=== PATIENT | male | born 1935 | race Caucasian/White ===

== ENCOUNTER 2020-12-25 11:57 | Inpatient (IN) | payer MEDICARE, SELFPAY ==
[~2020-12-25] VITALS: Ht 170.2 cm; Wt 67.1 kg
[2020-12-25 15:30] VITALS: BP 160/79
[2020-12-25 16:43] LABS: BASO # 0.1 10^3/uL (0.0-0.2); BASO % 0.4 % (0.0-1.0); EOS # 0.1 10^3/uL (0.0-0.5); EOS % 0.5 % (0.0-3.0); HEMATOCRIT 38.8 % (42.0-52.0); HEMOGLOBIN 13.4 g/dl (13.5-17.5); LYMPH % 13.1 % (24.0-44.0); MEAN CORPUSCULAR HEMOGLOBIN 31.6 pg (27.0-33.0); MEAN CORPUSCULAR HGB CONC 34.5 g/dl (32.0-36.5); MEAN CORPUSCULAR VOLUME 91.5 fl (80.0-96.0); MONO # 1.2 10^3/uL (0.0-0.8); MONO % 7.9 % (2.0-8.0); NEUTROPHILS # 11.7 10^3/uL (1.5-8.5); NEUTROPHILS % 77.8 % (36.0-66.0); PLATELET COUNT, AUTOMATED 217 10^3/uL (150-450); RED BLOOD COUNT 4.24 10^6/uL (4.30-6.10)
[2020-12-25 16:56] LABS: INR 1.01; PROTHROMBIN TIME 13.7 SECONDS (12.7-14.5)
[2020-12-25 16:57] LABS: PARTIAL THROMBOPLASTIN TIME 36.5 SECONDS (25.9-37.0)
--- NOTE | 2020-12-25 17:00 | IPNPDOC ---
Text Note Date of Service The patient was seen on 12/25/20. VS,Fishbone, I+O VS, Fishbone, I+O Vital Signs Date Time Temp Pulse Resp B/P (MAP) Pulse Ox O2 Delivery O2 Flow Rate FiO2 12/25/20 15:30 97.8 79 15 160/79 (106) 99 Room Air Adam Grimes DO Dec 25, 2020 17:00 JAQUAN SPENCER MD Dec 25, 2020 19:01
[2020-12-25 17:08] LABS: ALBUMIN 3.7 GM/DL (3.2-5.2); BILIRUBIN,TOTAL 0.9 MG/DL (0.2-1.0); CALCIUM LEVEL 9.6 MG/DL (8.8-10.2); CREATININE FOR GFR 1.33 MG/DL (0.70-1.30); GLOMERULAR FILTRATION RATE 54.7 (>35); MAGNESIUM LEVEL 2.1 MG/DL (1.8-2.4); POTASSIUM SERUM 4.5 MEQ/L (3.5-5.1); TOTAL PROTEIN 7.8 GM/DL (6.4-8.2)
[2020-12-25 17:10] LABS: CK-MB VALUE MASS 1.2 NG/ML (<3.6); CPK CREATINE PHOSPHOKINASE 112 U/L (39-308); MB/CK RELATIVE INDEX 1.07 (< OR =4); TROPONIN I < 0.02 NG/ML (< 0.10)
[2020-12-25] MEDS ORDERED: ONDANSETRON 4MG/2ML VIAL IV PRN (17:10)
[2020-12-25] MEDS ORDERED: MORPHINE 2 MG/ML 1ML VIAL (J2270) IV PRN (17:10)
[2020-12-25] MEDS ORDERED: ASPI81TA26 PO (17:23)
[2020-12-25] MEDS ORDERED: CENT1TAB12 PO (17:23)
[2020-12-25] MEDS ORDERED: HOME MED LIST COMPLETE! XX SCH (17:25)
[2020-12-25] MEDS: NS 1,000 ML IV SCH (18:02)
[2020-12-25] MEDS: PIPERACILLIN/TAZOBACTAM SOD 3.375 GM in D5W MINI-BAG PLUS 50 ML IV SCH (18:02)
--- NOTE | 2020-12-25 18:59 | HPEPDOC ---
General Date of Admission Dec 25, 2020 at 14:33 Date of Service: Dec 25, 2020 Attending Physician: SHERYL CALLEJAS MD Chief Complaint The patient is a 85-year-old male admitted with a reason for visit of Hydronephrosis & Cholecystitis Source: Patient Exam Limitations: No limitations History of Present Illness Subjective: Chief complaint: Patient is a 85-year-old male who presented to the [facility] last night with upper epigastric pain and lower abdominal quadrant pain who was transferred to [facility] for further management. History of present illness: Patient states that yesterday after dinner he developed acute epigastric pain as well as lower abdominal quadrants pain. He described the pain as gnawing, dull, and uncomfortable. He did state he induced vomiting 4-5 times which relieved the lower abdominal quadrant pain but the gnawing uncomfortable pain in the epigastric area continued. He tried Tums whic h provided no relief. He said the burping did provide a couple seconds of relief. Because of the continuing pain he and his decided to go to [facility] for further evaluation and management. There it was discovered that the patient has a 1.5 cm gallstone with gallbladder wall thickening as well as a 2 cm kidney stone in the right kidney with accompanying hydronephrosis. He also received 2 doses of morphine and 1 dose of Zofran at [facility] as well. Home Medications Scheduled Aspirin (Aspirin EC) 81 Mg Tablet.dr, 81 MG PO DAILY, (Reported) Multivit-Min/FA/Lycopen/Lutein (Centrum Silver Men Tablet) 1 Each Tablet, 1 TAB PO DAILY, (Reported) Allergies Coded Allergies: No Known Allergies (Verified Allergy, Unknown, 12/25/20) Past Medical History Medical History None Surgical History Appendectomy at age 7 Social History * Smoker: Denies Alcohol: Denies Drugs: denies A-FIB/CHADSVASC A-FIB History Current/History of A-Fib/PAF?: No Current PO Anticoag Therapy: No Review of Systems Other systems Review of systems: Constitutional: Denies fever, chills, night sweats Cardiac: Denies chest pain Respiratory: Denies shortness of breath, coughing Gastrointestinal: Denies nausea, diarrhea, bright red blood per rectum, flank pain; endorses uncomfortable abdominal pain/epigastric pain Genitourinary: Denies hematuria, dysuria Neurologic: Denies headache, dizziness Physical Examination Other physical findings General: Very pleasant 85-year-old man, resting in bed, no acute distress, wearing his own pajamas Cardiac: Regular rate and rhythm, no murmurs, rubs or gallops Respiratory: Clear to auscultation bilaterally; no wheezes, no rhonchi Gastrointestinal: Bowel sounds present in all quadrants, nontender to palpation in all quadrants including the areas of concern such as the upper epigastric and abdominal lower quadrants; negative Will sign; negative Rovsing sign bilate rally Musculoskeletal: Appropriate range of motion in all 4 extremities Psychological: Alert and oriented x4 Vital Signs Vital Signs Date Time Temp Pulse Resp B/P (MAP) Pulse Ox O2 Delivery O2 Flow Rate FiO2 12/25/20 15:30 97.8 79 15 160/79 (106) 99 Room Air Laboratory Data Labs 24H Laboratory Tests 2 12/25/20 16:22: Immature Granulocyte % (Auto) 0.3, Neutrophils (%) (Auto) 77.8H, Lymphocytes (%) (Auto) 13.1L, Monocytes (%) (Auto) 7.9, Eosinophils (%) (Auto) 0.5, Basophils (%) (Auto) 0.4, Neutrophils # (Auto) 11.7H, Lymphocytes # (Auto) 2.0, Monocytes # (Auto) 1.2H, Eosinophils # (Auto) 0.1, Basophils # (Auto) 0.1, Nucleated Red Blood Cells % (auto) 0.0, Prothrombin Time 13.7, Prothromb Time International Ratio 1.01, Activated Partial Thromboplast Time 36.5, Anion Gap 5L, Glomerular Filtration Rate 54.7, Lactic Acid Level 1.5, Calcium Level 9.6, Magnesium Level 2.1, Total Bilirubin 0.9, Aspartate Amino Transf (AST/SGOT) 17, Alanine Aminotransferase (ALT/SGPT) 25, Alkaline Phosphatase 108, Total Creatine Kinase 112, Creatine Kinase MB 1.2, Creatine Kinase MB Relative Index 1.07, Troponin I < 0.02, Total Protein 7.8, Albumin 3.7, Albumin/Globulin Ratio 0.9, Procalcitonin <0.05 12/25/20 17:07: Urine Color YELLOW, Urine Appearance CLEAR, Urine pH 6.0, Urine Specific [place] 1.009, Urine Protein NEGATIVE, Urine Glucose (UA) NEGATIVE, Urine Ketones NEGATI VE, Urine Blood 1+H, Urine Nitrite NEGATIVE, Urine Bilirubin NEGATIVE, Urine Urobilinogen 0.2, Urine Leukocyte Esterase NEGATIVE, Urine WBC (Auto) 2, Urine RBC (Auto) 3, Urine Hyaline Casts (Auto) 3, Urine Bacteria (Auto) NEGATIVE, Urine Squamous Epithelial Cells 0, Urine Mucus (Auto) SMALL, Urine Sperm (Auto) CBC/BMP Laboratory Tests 12/25/20 16:22 Microbiology Microbiology 12/25/20 Blood Culture, Received Pending 12/25/20 Blood Culture, Received Pending Assessment/Plan Assessment/plan: Patient is an 85-year-old man who presented to [facility] last night with upper epigastric pain and lower abdominal quadrants pain which have now subsided he was transferred to [facility] for further evaluation and management. #Hydronephrosis and kidney stone -Evidence seen on CT scan done at [facility] -An order for urology consult has been placed with Dr. Cuevas to receive his advice and input on further management and treatment of this patient -Flomax started 0.4 mg p.o. daily and IV fluid hydration - Will avoid NSAIDS given slight Cr increase - Will remain NPO until evaluated by Urology #Questionable acute cholecystitis -1.5 cm gallstone in the gallbladder neck and gallbladder wall thickening -Dr. Vanegas was consulted to determine if a HIDA scan will be an appropriate measure -HIDA scan has been ordered to determine presence of acute cholecystitis -Gallbladder ultrasound -Has been placed on Zosyn for antibiotic prophylaxis -Morphine for pain control -Has been made n.p.o. for anticipation of procedures -Discontinue aspirin -Teds and sequentials have been ordered for DVT prophylaxis -0.9% normal saline at 125 mLs/hr #Cr slightly elevated - UA ordered - Will c/w IV fluids #DVT prophylaxis - Will start TEDs/Sequentials Plan / VTE VTE Prophylaxis Ordered?: Yes (Teds and sequentials) GME ATTESTATION GME ATTESTATION My faculty preceptor for this patient encounter was physically present during the encounter and was fully available. All aspects of the patient interview, examination, medical decision making process, and medical care plan development were reviewed and approved by the faculty preceptor. The faculty preceptor is aware and concurs with the plan as stated in the body of this note and will attest to such by his/her cosignature. ATTENDING NOTE I, Sheryl Callejas, have independently examined this patient and performed my own physical exam, as well as reviewed the documentation and edited where necessary. I have discussed in detail with the resident / student the findings and plan of treatment as documented by the resident / student and edited their note. I agree with their findings and treatment plan and have edited their documentation. I will continue to follow the patient during this hospital stay. Adam Grimes DO Dec 25, 2020 18:59 SHERYL CALLEJAS MD Dec 25, 2020 19:05
--- NOTE | 2020-12-25 19:18 | REP ---
INDICATION: 1.5 cm GB neck stone w/ GB wall thickening on CT. COMPARISON: Prior CT imaging not available at this juncture. TECHNIQUE: Right upper quadrant sonography. FINDINGS: Scanning through the right upper quadrant the abdomen demonstrates a mildly distended thick-walled gallbladder containing sludge and a 1.5 cm shadowing echogenic structure consistent with a stone near the gallbladder neck. Gallbladder wall is quite thickened up to 9 mm. Tenderness to scanning was not elicited over the gallbladder 0 ever. The common bile duct is normal measuring 0.4 cm in greatest diameter. No focal liver lesion is seen. The pancreas is obscured by abdominal gas. No free fluid is noted. Incidental note is made of severe right-sided hydronephrosis. Right kidney measures 11.9 x 4.1 x 6.5 cm. IMPRESSION: 1. Cholelithiasis. 2. Distended thick-walled gallbladder containing sludge in addition to a cyst gallstone. No tenderness to scanning or pericholecystic fluid seen. 3. Severe right-sided hydronephrosis. <Electronically signed by Rocco Peña > 12/25/201914
--- NOTE | 2020-12-25 21:45 | SMCUROLCON ---
Urology Consultation General Date of Consultation 12/25/20 Reason For Consultation This patient is seen for Hydronephrosis & Colosystolitis. History of Present Illness Per record and discussion with patient: Chief complaint: Patient is a 85-year-old male who presented to the [facility] last night with upper epigastric pain and lower abdominal quadrant pain who was transferred to [facility] for further management. Per record and discussion with patient: History of present illness: Patient states that yesterday after dinner he developed acute epigastric pain as well as lower abdominal quadrants pain. He described the pain as gnawing, dull, and uncomfortable. He did state he induced vomiting 4-5 times which relieved the lower abdominal quadrant pain but the gnawing uncomfortable pain in the epigastric area continued. He tried Tums which provided no relief. He said the burping did provide a couple seconds of relief. Because of the continuing pain he and his decided to go to [facility] for further evaluation and management. There it was discovered that the patient has a 1.5 cm gallstone with gallbladder wall thickening as well as a 2 cm kidney stone in the right kidney with accompanying hydronephrosis. He also received 2 doses of morphine and 1 dose of Zofran at [facility] as well. Past Medical History Medical History Past Medical History Medical History None Surgical Hstory Surgical History Appendectomy at age 7 Social History Social History Smoker: Denies Alcohol: Denies Drugs: denies Medications Current Medications Current Medications Medications (Trade) Dose Ordered Sig/Jasno Route PRN Reason Start Time Stop Time Status Last Admin Dose Admin Home Med (Home Med List Complete!) ASDIRECTED XX 12/25/20 17:25 12/25/20 17:26 DC Morphine Sulfate (Morphine Sulfate Inj) 2 mg Q6H PRN IV MODERATE PAIN (PS 5-7) 12/25/20 17:10 Ondansetron HCl (ZOFRAN INJection) 4 mg Q8HP PRN IV NAUSEA OR VOMITING 12/25/20 17:10 Piperacillin Sod/ Tazobactam Sod 3.375 gm/Dextrose 50 ml @ 50 mls/hr Q6H IV 12/25/20 18:00 12/25/20 18:02 Sodium Chloride 1,000 ml @ 125 mls/hr Q8H IV 12/25/20 17:10 12/25/20 18:02 Tamsulosin HCl (Flomax) 0.4 mg DAILY PO 12/26/20 09:00 Allergies Allergies: Coded Allergies: No Known Allergies (Verified Allergy, Unknown, 12/25/20) Review of Systems General: Reports: Normal Appetite, Other Symptoms; Denies: ROS Unobtainable, Chills, Night Sweats, Fatigue, Malaise Constitutional: Reports: Other; Denies: Fever, Chills, Sweats, Weakness, Malaise Pulmonary: Denies: Dyspnea, Cough, Pleuritic Chest Pain, Other Symptoms Cardiovascular: Denies Chest Pain, Denies Palpitations, Denies Orthopnea, Denies Paroxysmal Noc. Dyspnea, Denies Edema, Denies Lt Headedness, Denies Other Symptoms Gastrointestinal: Reports: Nausea, Vomiting, Abdominal Pain, Diarrhea, Constipation, Melena, Hematochezia, Other Symptoms Genitourinary: Denies: Dysuria, Frequency, Incontinence, Hematuria, Retention, Other Symptoms Musculoskeletal: Denies: Neck Pain, Back Pain, Shoulder Pain, Arm Pain, Hand Pain, Leg Pain, Foot Pain, Joint Pain, Muscle Pain, Spasms, Other Symptoms Neurological: Denies: Weakness, Numbness, Incoordination, Change in Speech, Confusion, Seizures, Other Symptoms Physical Examination General Exam: Alert, Cooperative EYE EXAM: Conjunctiva & lids normal Neck Exam: Supple Chest Exam: Clear to auscultation Male Exam: Normal Genital Exam Male Exam Prostate 40 grams smooth Extremity Exam: No: Clubbing, Cyanosis, Edema, Normal Pulses, Tenderness, Swelling, Other Neuro Exam: Normal Tone, Reflexes 2+, Other; No: Normal Gait, Normal Speech, Strength at 5/5 X4 ext, Sensation Intact, Cranial Nerves 3-12 NL Vital Signs/I&O Vital Signs Date Time Temp Pulse Resp B/P (MAP) Pulse Ox O2 Delivery O2 Flow Rate FiO2 12/25/20 15:30 97.8 79 15 160/79 (106) 99 Room Air Laboratory Data 24H Labs Laboratory Tests 2 12/25/20 16:22: Immature Granulocyte % (Auto) 0.3, Neutrophils (%) (Auto) 77.8H, Lymphocytes (%) (Auto) 13.1L, Monocytes (%) (Auto) 7.9, Eosinophils (%) (Auto) 0.5, Basophils (%) (Auto) 0.4, Neutrophils # (Auto) 11.7H, Lymphocytes # (Auto) 2.0, Monocytes # (Auto) 1.2H, Eosinophils # (Auto) 0.1, Basophils # (Auto) 0.1, Nucleated Red Blood Cells % (auto) 0.0, Prothrombin Time 13.7, Prothromb Time International Ratio 1.01, Activated Partial Thromboplast Time 36.5, Anion Gap 5L, Glomerular Filtration Rate 54.7, Lactic Acid Level 1.5, Calcium Level 9.6, Magnesium Level 2.1, Total Bilirubin 0.9, Aspartate Amino Transf (AST/SGOT) 17, Alanine Aminotransferase (ALT/SGPT) 25, Alkaline Phosphatase 108, Total Creatine Kinase 112, Creatine Kinase MB 1.2, Creatine Kinase MB Relative Index 1.07, Troponin I < 0.02, Total Protein 7.8, Albumin 3.7, Albumin/Globulin Ratio 0.9, Procalcitonin <0.05 12/25/20 17:07: Urine Color YELLOW, Urine Appearance CLEAR, Urine pH 6.0, Urine Specific [place] 1.009, Urine Protein NEGATIVE, Urine Glucose (UA) NEGATIVE, Urine Ketones NEGATIVE, Urine Blood 1+H, Urine Nitrite NEGATIVE, Urine Bilirubin NEGATIVE, Urine Urobilinogen 0.2, Urine Leukocyte Esterase NEGATIVE, Urine WBC (Auto) 2, Urine RBC (Auto) 3, Urine Hyaline Casts (Auto) 3, Urine Bacteria (Auto) NEGATIVE, Urine Squamous Epithelial Cells 0, Urine Mucus (Auto) SMALL, Urine Sperm (Auto) CBC/BMP Laboratory Tests 12/25/20 16:22 Microbiology Microbiology 12/25/20 Blood Culture, Received Pending 12/25/20 Blood Culture, Received Pending Assessment Patient [id number]-year-old male under no acute distress. Has a noncontrast CT that shows a greater than 2 cm stone at the UPJ proximal ureter. The kidney is obstructed with significant hydronephrosis and some mild perinephric stranding. This case is complicated by a stone that may be obstructing his gallbladder as well causing acute cholecystitis. Plan I discussed with the patient and his son the treatment option of placing a right ureteral stent tonight to relieve the obstruction. I discussed with the patient that his case is complicated by the dual processes going on between the kidney and the gallbladder with stones that could be obstructing and causing his symptoms. Per the CT scan it is clear that the right collecting system is obstructed. I informed patient of the risks that if his kidney becomes or is infected, he can become extremely ill from sepsis. His white count is 15 and unsure of this slight bump in his white count is from the gallbladder or the kidney. Patient was given the opportunity to have a RT ureteral stent placed tonight. Risk and benefits were discussed for 15 minutes (patient and son). Several questions were answered. After consideration and talking to his son (by phone) and considering it for over 25 minutes, he opted to wait. Patient and son are aware that I cannot predict when he could become ill or when the operating room will be available for us to perform this procedure at a later date. Will reevaluate tomorrow. TATI KNOWLES MD Dec 25, 2020 21:19
[2020-12-25 22:26] VITALS: BP 158/81
[2020-12-26] VITALS (7 sets, daily range): BP systolic 150–169; BP diastolic 67–86
[2020-12-26] MEDS: PIPERACILLIN/TAZOBACTAM SOD 3.375 GM in D5W MINI-BAG PLUS 50 ML IV SCH ×4 (00:02→18:15)
[2020-12-26] MEDS: NS 1,000 ML IV SCH ×2 (01:10→12:01)
--- NOTE | 2020-12-26 07:25 | IPNPDOC ---
Subjective Review oF Systems Chief Complaint The patient is a 85-year-old male admitted with a reason for visit of Hydronephrosis & Colosystolitis. Events since Last Encounter Patient stable and afebrile throughout the night. Gastrointestinal: Reports: Diarrhea, Constipation, Melena, Hematochezia, Other Symptoms; Denies: Nausea, Vomiting, Abdominal Pain Genitourinary: Denies: Dysuria, Frequency, Incontinence, Hematuria, Retention, Other Symptoms Objective Physical Examination ABDOMEN EXAM: Normal bowel sounds, BS Hyperactive, BS Hypoactive, Soft, Hepatospenomegaly, Mass, Hernia, Other; No: Tenderness Vital Signs/I&O Vital Signs Date Time Temp Pulse Resp B/P (MAP) Pulse Ox O2 Delivery O2 Flow Rate FiO2 12/26/20 06:44 97.7 68 18 154/67 (96) 97 Room Air I&O- Last 24 Hours up to 6 AM 12/26/20 06:00 Intake Total 0 ml Output Total 100 ml Balance -100 ml Laboratory Data Labs 24H Laboratory Tests 2 12/25/20 16:22: Immature Granulocyte % (Auto) 0.3, Neutrophils (%) (Auto) 77.8H, Lymphocytes (%) (Auto) 13.1L, Monocytes (%) (Auto) 7.9, Eosinophils (%) (Auto) 0.5, Basophils (%) (Auto) 0.4, Neutrophils # (Auto) 11.7H, Lymphocytes # (Auto) 2.0, Monocytes # (Auto) 1.2H, Eosinophils # (Auto) 0.1, Basophils # (Auto) 0.1, Nucleated Red Blood Cells % (auto) 0.0, Prothrombin Time 13.7, Prothromb Time International Ratio 1.01, Activated Partial Thromboplast Time 36.5, Anion Gap 5L, Glomerular Filtration Rate 54.7, Lactic Acid Level 1.5, Calcium Level 9.6, Magnesium Level 2.1, Total Bilirubin 0.9, Aspartate Amino Transf (AST/SGOT) 17, Alanine Aminotransferase (ALT/SGPT) 25, Alkaline Phosphatase 108, Total Creatine Kinase 112, Creatine Kinase MB 1.2, Creatine Kinase MB Relative Index 1.07, Troponin I < 0.02, Total Protein 7.8, Albumin 3.7, Albumin/Globulin Ratio 0.9, Procalcitonin <0.05 12/25/20 17:07: Urine Color YELLOW, Urine Appearance CLEAR, Urine pH 6.0, Urine Specific [place] 1.009, Urine Protein NEGATIVE, Urine Glucose (UA) NEGATIVE, Urine Ketones NE GATIVE, Urine Blood 1+H, Urine Nitrite NEGATIVE, Urine Bilirubin NEGATIVE, Urine Urobilinogen 0.2, Urine Leukocyte Esterase NEGATIVE, Urine WBC (Auto) 2, Urine RBC (Auto) 3, Urine Hyaline Casts (Auto) 3, Urine Bacteria (Auto) NEGATIVE, Urine Squamous Epithelial Cells 0, Urine Mucus (Auto) SMALL, Urine Sperm (Auto) CBC/BMP Laboratory Tests 12/25/20 16:22 Microbiology Microbiology 12/25/20 Blood Culture, Received Pending 12/25/20 Blood Culture, Received Pending Assessment/Plan Date Seen The patient was seen on 12/26/20. Patient Summary Stable Labs pending. Plan/VTE VTE Prophylaxis Ordered?: Yes (Teds and sequentials) Plan Continue present care possible stent ureteral stent placement or PNC TATI KNOWLES MD Dec 26, 2020 07:25
[2020-12-26] MEDS ORDERED: TAMSULOSIN 0.4 MG CAP PO SCH (09:00)
--- NOTE | 2020-12-26 09:18 | IPNPDOC ---
Date Seen The patient was seen on 12/26/20. Progress Note met with pt this morning sitting at bedside looks comfortable denies any pain wbc 15 repeat blood work to be done yet I spoke with pt at length about the need for a right stent explained that he is obstructed and will likely worsen clinically if he decides against a stent pt hesitant and asked many questions I left with the following plan in place npo await repeat blood work decide on stent after seeing blood work Dr. Cuevas has spoken with pt at length as well thank you [phone] VS, I&O, 24H, [place] Vital Signs/I&O Vital Signs Date Time Temp Pulse Resp B/P (MAP) Pulse Ox O2 Delivery O2 Flow Rate FiO2 12/26/20 06:44 97.7 68 18 154/67 (96) 97 Room Air I&O- Last 24 Hours up to 6 AM 12/26/20 06:00 Intake Total 0 ml Output Total 100 ml Balance -100 ml Laboratory Data 24H LABS Laboratory Tests 2 12/25/20 16:22: Immature Granulocyte % (Auto) 0.3, Neutrophils (%) (Auto) 77.8H, Lymphocytes (%) (Auto) 13.1L, Monocytes (%) (Auto) 7.9, Eosinophils (%) (Auto) 0.5, Basophils (%) (Auto) 0.4, Neutrophils # (Auto) 11.7H, Lymphocytes # (Auto) 2.0, Monocytes # (Auto) 1.2H, Eosinophils # (Auto) 0.1, Basophils # (Auto) 0.1, Nucleated Red Blood Cells % (auto) 0.0, Prothrombin Time 13.7, Prothromb Time International Ratio 1.01, Activated Partial Thromboplast Time 36.5, Anion Gap 5L, Glomerular Filtration Rate 54.7, Lactic Acid Level 1.5, Calcium Level 9.6, Magnesium Level 2.1, Total Bilirubin 0.9, Aspartate Amino Transf (AST/SGOT) 17, Alanine Aminotransferase (ALT/SGPT) 25, Alkaline Phosphatase 108, Total Creatine Kinase 112, Creatine Kinase MB 1.2, Creatine Kinase MB Relative Index 1.07, Troponin I < 0.02, Total Protein 7.8, Albumin 3.7, Albumin/Globulin Ratio 0.9, Procalcitonin <0.05 12/25/20 17:07: Urine Color YELLOW, Urine Appearance CLEAR, Urine pH 6.0, Urine Specific [place] 1.009, Urine Protein NEGATIVE, Urine Glucose (UA) NEGATIVE, Urine Ketones NEGATIVE, Urine Blood 1+H, Urine Nitrite NEGATIVE, Urine Bilirubin NEGATIVE, Urine Urobilinogen 0.2, Urine Leukocyte Esterase NEGATIVE, Urine WBC (Auto) 2, Urine RBC (Auto) 3, Urine Hyaline Casts (Auto) 3, Urine Bacteria (Auto) NEGATIVE, Urine Squamous Epithelial Cells 0, Urine Mucus (Auto) SMALL, Urine Sperm (Auto) CBC/BMP Laboratory Tests 12/25/20 16:22 Microbiology Microbiology 12/25/20 Blood Culture, Received Pending 12/25/20 Blood Culture, Received Pending VALENTINA BRUCE MD Dec 26, 2020 09:18
--- NOTE | 2020-12-26 10:37 | IPNPDOC ---
Text Note Date of Service The patient was seen on 12/26/20. NOTE Subjective: Patient is a 85-year-old male who presented to the [facility] last night with upper epigastric pain and lower abdominal quadrant pain who was transferred to [facility] for further management. Patient states that yesterday after dinner he developed acute epigastric pain as well as lower abdominal quadrants pain. He described the pain as gnawing, dull, and uncomfortable. He did state he induced vomiting 4-5 times which relieved the lower abdominal quadrant pain but the gnawing uncomfortable pain in the epigastric area continued. He tried Tums whic h provided no relief. He said the burping did provide a couple seconds of relief. Because of the continuing pain he and his decided to go to [facility] for further evaluation and management. There it was discovered that the patient has a 1.5 cm gallstone with gallbladder wall thickening as well as a 2 cm kidney stone in the right kidney with accompanying hydronephrosis. He also received 2 doses of morphine and 1 dose of Zofran at [facility] as well. Overnight patient did well. Is not complaining of any pain at this time. He is seen Dr. Cuevas and Dr. Whipple for urology consults pertaining to his hydronephrosis and kidney stone. After talking Dr. Cuevas last night patient wanted to hold off on having a stent placed due to feeling worse to make an incision that night. This morning Dr. Whipple explained that "[the right kidney] is obstructed he is obstructed and will likely worsen clinically After talking with Dr. Whipple he this morning and patient has agreed to have a stent put in. Patient did however deny customer service professional blood draw due to confusion as to why they were drawing blood. It was explained to him that it was needed for diagnostic purposes to see if there are any issues related to his kidney and gallbladder and he consented to have it drawn. Review of Systems Other systems Review of systems: Constitutional: Denies fever, chills, night sweats Cardiac: Denies chest pain Respiratory: Denies shortness of breath, coughing Gastrointestinal: Denies nausea, diarrhea, bright red blood per rectum, flank pain, or the uncomfortable abdominal pain that brought him to the hospital to begin with Genitourinary: Denies hematuria, dysuria Neurologic: Denies headache, dizziness Physical Examination Other physical findings General: Very pleasant 85-year-old man, resting in bed, no acute distress, wearing his own pajamas HEENT: Eyes PERRLA and EOMI Cardiac: Regular rate and rhythm, no murmurs, rubs or gallops Respiratory: Clear to auscultation bilaterally; no wheezes, no rhonchi Gastrointestinal: Bowel sounds present in all quadrants, nontender to palpation in all quadrants including the areas of concern such as the upper epigastric and abdominal lower quadrants Musculoskeletal: Appropriate range of motion in all 4 extremities Psychological: Alert and oriented x4 Imaging: Mildly distended, thick-walled gallbladder containing sludge and a 1.5 cm shadowing echogenic structure consistent with a stone near the gallbladder neck. Gallbladder wall is quite thickened up to 9 mm. Tenderness to scanning was not elicited over the gallbladder. The common bile duct is normal measuring 0.4 cm in greatest diameter. No focal liver lesion is seen. The pancreas is obscured by abdominal gas. No free fluid is noted. Incidental note is made of severe right-sided hydronephrosis. Right kidney measures 11.9 x 4.1 x 6.5 cm. Assessment/plan: Patient is an 85-year-old man who presented to [facility] last night with upper epigastric pain and lower abdominal quadrants pain which have now subsided he was transferred to [facility] for further evaluation and management. #Hydronephrosis and kidney stone -Evidence seen on CT scan done at [facility] -Flomax started 0.4 mg p.o. daily and IV fluid hydration -Will avoid NSAIDS given slight Cr increase -Will remain NPO until evaluated by Urology -Dr. Cuevas saw the patient last night today. Per patient Dr. Cuevas made it seem like a very urgent matter and patient wanted to discuss it more with his family and think about it. Patient consulted with Dr. Whipple this morning and has agreed to have the stent placed today #Questionable acute cholecystitis -1.5 cm gallstone in the gallbladder neck and gallbladder wall thickening -Dr. Vanegas was consulted to determine if a HIDA scan will be an appropriate measure -HIDA scan has been ordered to determine presence of acute cholecystitis -Gallbladder ultrasound completed -Has been placed on Zosyn for antibiotic prophylaxis -Morphine for pain control -Has been made n.p.o. for anticipation of procedures -Discontinue aspirin -Teds and sequentials have been ordered for DVT prophylaxis -0.9% normal saline at 125 mLs/hr #Cr slightly elevated - likely 2/2 JOSIE - likely 2/2 post-obstructive etiology - Cr remains elevated - UA ordered - Will c/w IV fluids #DVT prophylaxis - Will c/w TEDs/Sequentials VS,Fishbone, I+O VS, Fishbone, I+O Laboratory Tests 12/25/20 16:22 Vital Signs Date Time Temp Pulse Resp B/P (MAP) Pulse Ox O2 Delivery O2 Flow Rate FiO2 12/26/20 06:44 97.7 68 18 154/67 (96) 97 Room Air I&O- Last 24 Hours up to 6 AM 12/26/20 06:00 Intake Total 0 ml Output Total 100 ml Balance -100 ml GME ATTESTATION GME ATTESTATION My faculty preceptor for this patient encounter was physically present during the encounter and was fully available. All aspects of the patient interview, examination, medical decision making process, and medical care plan development were reviewed and approved by the faculty preceptor. The faculty preceptor is aware and concurs with the plan as stated in the body of this note and will attest to such by his/her cosignature. ATTENDING NOTE I, Sheryl Callejas, have independently examined this patient and performed my own physical exam, as well as reviewed the documentation and edited where necessary. I have discussed in detail with the resident / student the findings and plan of treatment as documented by the resident / student and edited their note. I agree with their findings and treatment plan and have edited their documentation. I will continue to follow the patient during this hospital stay. Adam Grimes DO Dec 26, 2020 10:37 SHERYL CALLEJAS MD Dec 26, 2020 17:36
--- NOTE | 2020-12-26 11:15 | CR.PDOC ---
General Date of Consultation: Dec 26, [address] Vanegas HISTORY OF PRESENT ILLNESS: The patient is an 85-year-old male who initially presented to [facility] the evening of 12/24/2020 with epigastric pain and lower abdominal pain and was subsequently transferred to [facility] for further management. The patient reports that after dinner on 12/24 he developed upper/epigastric abdominal pain which also moved to the lower abdomen. He describes it as a dull uncomfortable feeling and he subsequently induced vomiting 4-5 times which seemed to relieve his discomfort somewhat but he still had some uncomfortable discomfort in the epigastric area. He tried Tums which did not relieve the pain. He also belched which seemed to improve his pain for short time but it returned. He thought he may have food poisoning because for dinner he ate chicken and mushrooms so he went to [facility] for further evaluation. A CT scan was done at [facility] which indicated right kidney stone with hydronephrosis and a gallstone with gallbladder wall thickening. Imaging at [facility] included right upper quadrant ultrasound 12/25/2020 indicating gallbladder sludge, 1.5 cm shadowing structure consistent with stone near the gallbladder neck, gallbladder wall 9 mm, common bile duct 0 .4 cm, no tenderness to scanning was elicited. General surgery is consulted for cholecystitis. Currently, the patient states he is not having any discomfort whatsoever. Denies epigastric discomfort. States the pain was not in the right upper quadrant. He has had no previous episodes of pain. He does not associate any abdominal discomfort with eating fatty foods. Reports no radiation of pain. Denies nausea or vomiting currently. ALLERGIES: Please see below. HOME MEDICATIONS: Please see below. PAST MEDICAL HISTORY: Denies PAST SURGICAL HISTORY: Appendectomy as child SOCIAL HISTORY: Non-smoker REVIEW OF SYSTEMS: As noted in HPI otherwise 10 point review of systems unremarkable. PHYSICAL EXAMINATION: VITAL SIGNS: Afebrile. Heart rate 68, respiratory rate 18, blood pressure 154 /67, 97% room air. GENERAL APPEARANCE: Awake and alert , no acute distress, sitting on the side of the bed. HEENT: MMM RESPIRATORY: Clear to auscultation. CARDIOVASCULAR: S1-S2 regular rate rhythm ABDOMEN: Soft, nontender, nondistended. No tenderness in the epigastric/right upper quadrant. EXTREMITIES: No edema LABORATORY DATA: No new labs today On admission WBC 15.0, hemoglobin 13.4. LFTs within normal limits. Right upper quadrant ultrasound INDICATION: 1.5 cm GB neck stone w/ GB wall thickening on CT. COMPARISON: Prior CT imaging not available at this juncture. TECHNIQUE: Right upper quadrant sonography. FINDINGS: Scanning through the right upper quadrant the abdomen demonstrates a mildly distended thick-walled gallbladder containing sludge and a 1.5 cm shadowing echogenic structure consistent with a stone near the gallbladder neck. Gallbladder wall is quite thickened up to 9 mm. Tenderness to scanning was not elicited over the gallbladder 0 ever. The common bile duct is normal measuring 0.4 cm in greatest diameter. No focal liver lesion is seen. The pancreas is obscured by abdominal gas. No free fluid is noted. Incidental note is made of severe right-sided hydronephrosis. Right kidney measures 11.9 x 4.1 x 6.5 cm. IMPRESSION: 1. Cholelithiasis. 2. Distended thick-walled gallbladder containing sludge in addition to a cyst gallstone. No tenderness to scanning or pericholecystic fluid seen. 3. Severe right-sided hydronephrosis. <Electronically signed by Rocco Peña > 12/25/201914 ASSESSMENT/PLAN: Abdominal pain. The patient is reviewed and examined as per Dr. Vanegas. Currently the patient states he is not having any pain. No nausea or vomiting. The patient is afebrile. Currently n.p.o. IVF/IV Zosyn as per hospitalist. HIDA scan is requested for further evaluation of GB, further recommendations pending review of imaging. Right kidney stone/hydronephrosis. Management as per urology. Vital Signs/I&O Vital Signs Date Time Temp Pulse Resp B/P (MAP) Pulse Ox O2 Delivery O2 Flow Rate FiO2 12/26/20 06:44 97.7 68 18 154/67 (96) 97 Room Air I&O- Last 24 Hours up to 6 AM 12/26/20 06:00 Intake Total 0 ml Output Total 100 ml Balance -100 ml Laboratory Data Labs 24H Laboratory Tests 2 12/25/20 16:22: Immature Granulocyte % (Auto) 0.3, Neutrophils (%) (Auto) 77.8H, Lymphocytes (%) (Auto) 13.1L, Monocytes (%) (Auto) 7.9, Eosinophils (%) (Auto) 0.5, Basophils (%) (Auto) 0.4, Neutrophils # (Auto) 11.7H, Lymphocytes # (Auto) 2.0, Monocytes # (Auto) 1.2H, Eosinophils # (Auto) 0.1, Basophils # (Auto) 0.1, Nucleated Red Blood Cells % (auto) 0.0, Prothrombin Time 13.7, Prothromb Time International Ratio 1.01, Activated Partial Thromboplast Time 36.5, Anion Gap 5L, Glomerular Filtration Rate 54.7, Lactic Acid Level 1.5, Calcium Level 9.6, Magnesium Level 2.1, Total Bilirubin 0.9, Aspartate Amino Transf (AST/SGOT) 17, Alanine Aminotransferase (ALT/SGPT) 25, Alkaline Phosphatase 108, Total Creatine Kinase 112, Creatine Kinase MB 1.2, Creatine Kinase MB Relative Index 1.07, Troponin I < 0.02, Total Protein 7.8, Albumin 3.7, Albumin/Globulin Ratio 0.9, Procalcitonin <0.05 12/25/20 17:07: Urine Color YELLOW, Urine Appearance CLEAR, Urine pH 6.0, Urine Specific [place] 1.009, Urine Protein NEGATIVE, Urine Glucose (UA) NEGATIVE, Urine Ketones NEGATIVE, Urine Blood 1+H, Urine Nitrite NEGATIVE, Urine Bilirubin NEGATIVE, Urine Urobilinogen 0.2, Urine Leukocyte Esterase NEGATIVE, Urine WBC (Auto) 2, Urine RBC (Auto) 3, Urine Hyaline Casts (Auto) 3, Urine Bacteria (Auto) NEGATI VE, Urine Squamous Epithelial Cells 0, Urine Mucus (Auto) SMALL, Urine Sperm (Auto) CBC/BMP Laboratory Tests 12/25/20 16:22 Microbiology Microbiology 12/25/20 Blood Culture, Received Pending 12/25/20 Blood Culture, Received Pending Allergies Coded Allergies: No Known Allergies (Verified Allergy, Unknown, 12/25/20) Home Medications Scheduled Aspirin (Aspirin EC) 81 Mg Tablet.dr, 81 MG PO DAILY, (Reported) Multivit-Min/FA/Lycopen/Lutein (Centrum Silver Men Tablet) 1 Each Tablet, 1 TAB PO DAILY, (Reported) Diane Rock Dec 26, 2020 11:15
[2020-12-26 11:29] LABS: HEMATOCRIT 40.8 % (42.0-52.0); HEMOGLOBIN 13.4 g/dl (13.5-17.5); MEAN CORPUSCULAR HEMOGLOBIN 30.9 pg (27.0-33.0); MEAN CORPUSCULAR HGB CONC 32.8 g/dl (32.0-36.5); MEAN CORPUSCULAR VOLUME 94.2 fl (80.0-96.0); PLATELET COUNT, AUTOMATED 226 10^3/uL (150-450); RED BLOOD COUNT 4.33 10^6/uL (4.30-6.10); WHITE BLOOD COUNT 13.4 10^3/uL (4.0-10.0)
[2020-12-26 12:12] LABS: ALBUMIN 3.7 GM/DL (3.2-5.2); BILIRUBIN,TOTAL 1.3 MG/DL (0.2-1.0); CALCIUM LEVEL 8.9 MG/DL (8.8-10.2); CREATININE FOR GFR 1.48 MG/DL (0.70-1.30); GLOMERULAR FILTRATION RATE 48.3 (>35); POTASSIUM SERUM 4.6 MEQ/L (3.5-5.1); TOTAL PROTEIN 7.8 GM/DL (6.4-8.2)
--- NOTE | 2020-12-26 16:27 | IPNPDOC ---
Date Seen The patient was seen on 12/26/20. Progress Note met with pt earlier today creatinine has increased wbc still elevated plan is cysto with stent today, pt is add on case npo till surgery VS, I&O, 24H, [facility] Vital Signs/I&O Vital Signs Date Time Temp Pulse Resp B/P (MAP) Pulse Ox O2 Delivery O2 Flow Rate FiO2 12/26/20 14:00 98.7 67 16 150/71 (97) 99 Room Air I&O- Last 24 Hours up to 6 AM 12/26/20 06:00 Intake Total 0 ml Output Total 100 ml Balance -100 ml Laboratory Data 24H LABS Laboratory Tests 2 12/25/20 17:07: Urine Color YELLOW, Urine Appearance CLEAR, Urine pH 6.0, Urine Specific [place] 1.009, Urine Protein NEGATIVE, Urine Glucose (UA) NEGATIVE, Urine Ketones NEGATIVE, Urine Blood 1+H, Urine Nitrite NEGATIVE, Urine Bilirubin NEGATIVE, Urine Urobilinogen 0.2, Urine Leukocyte Esterase NEGATIVE, Urine WBC (Auto) 2, Urine RBC (Auto) 3, Urine Hyaline Casts (Auto) 3, Urine Bacteria (Auto) NEGATIVE, Urine Squamous Epithelial Cells 0, Urine Mucus (Auto) SMALL, Urine Sperm (Auto) 12/26/20 11:20: Nucleated Red Blood Cells % (auto) 0.0, Anion Gap 7L, Glomerular Filtration Rate 48.3, Calcium Level 8.9, Magnesium Level 2.2, Total Bilirubin 1.3H, Aspartate Amino Transf (AST/SGOT) 30, Alanine Aminotransferase (ALT/SGPT) 25, Alkaline Phosphatase 104, Total Protein 7.8, Albumin 3.7, Albumin/Globulin Ratio 0.9 12/26/20 14:50: Coronavirus (COVID-19)(PCR) NEGATIVE CBC/BMP Laboratory Tests 12/26/20 11:20 Microbiology Microbiology 12/25/20 Blood Culture, Received Pending 12/25/20 Blood Culture, Received Pending VALENTINA BRUCE MD Dec 26, 2020 16:27
[2020-12-26] MEDS ORDERED: CONRAY-60 60% 50ML VIAL (Q9961) As Ordered ONE (20:24)
--- NOTE | 2020-12-26 20:43 | ROOPDOC ---
[facility] Report Of Operation Report of Operation DATE OF PROCEDURE: 12/26/20 PREPROCEDURE DIAGNOSES: [right renal stone with hydronephrosis]. POSTPROCEDURE DIAGNOSES: [stone impacted at right upj]. PROCEDURE PERFORMED: [cysto with attempt at right stent placement, retrograde, fluoroscopy]. SURGEON: [Allie Bruce, TOOL LATHE OPERATOR: [none], ANESTHESIA: [mac]. ESTIMATED BLOOD LOSS: Approximately [2] mL. COMPLICATIONS: [none]. REMARKS: [85yo wm. Right renal stone with hydronephrosis. Stent placement arranged. Dr. Cuevas and I had many talks with pt. All questions answered. LIkely eswl in the future. Informed consent obtained. Risks discussed including infection, pain, bleeding, scarring, failure of surgery, injury to gu tract and othes.]. FINDINGS: SPECIMENS REMOVED: [none] PROCEDURE NOTE: . DESCRIPTION OF PROCEDURE: [Talked with the patient at length before the surgery. Informed consent was obtained. Questions answered. Patient wished to proc eed. Patient brought to the OR room. Supine position at first. MAC anesthesia was started. Positioning then dorsolithotomy. Well-padded. Prepping and draping in the usual sterile fashion. Timeout was performed. Cystoscopy was performed with a rigid cystoscope. No stricture. BPH though not impressive. No stone in the bladder. Right ureteral orifice identified. Contrast was injected under fluoroscopic guidance. A retrograde pyelogram was obtained. 5 Monegasque open-ended catheter used. Stone obvious at the UPJ. I was unable to pass a wire beyond the stone. I used different wires. I used the 5 Monegasque open-ended catheter to help. The wire would not pass and the catheter would not pass. I then decided to do rigid ureteroscopy. At this point there was no wire in the ureter. I attempted to pass a wire once again. For some reason the wire would not go beyond a few centimeters. Even with help from a catheter I was unable to pass the wire. I decided to stop at this point. Stent placement was unsuccessful obviously. Patient left the room in satisfactory condition. Nephrostomy tube is the plan with attempt at antegrade stent placement.]. VALENTINA BRUCE MD Dec 26, 2020 20:43
[2020-12-26] MEDS ORDERED: propofoL 200 MG/20 ML VIAL As Ordered ONE (21:19)
[2020-12-26] MEDS ORDERED: LIDOCAINE 2% 100MG/5ML SDV (FOR ANES.) As Ordered ONE (21:19)
[2020-12-26] MEDS ORDERED: fentaNYL 100 MCG/2 ML INJECTION (J3010) As Ordered ONE (21:19)
[2020-12-26] MEDS ORDERED: ONDANSETRON 4MG/2ML VIAL As Ordered ONE (21:19)
[2020-12-26] MEDS ORDERED: MIDAZOLAM INJ 2MG/2ML VIAL (J2250 PER 1MG) As Ordered ONE (21:19)
--- NOTE | 2020-12-26 21:25 | IPNPDOC ---
Date Seen The patient was seen on 12/26/20. Progress Note UNABLE TO PLACE RIGHT URETERAL STENT COULDN'T GET WIRE PAST IMPACTED RIGHT UPJ STONE IR TO PLACE NEPHROSTOMY TUBE TOMORROW VS, I&O, 24H, [place] Vital Signs/I&O Vital Signs Date Time Temp Pulse Resp B/P (MAP) Pulse Ox O2 Delivery O2 Flow Rate FiO2 12/26/20 19:47 97.1 86 20 159/84 (109) 93 Room Air I&O- Last 24 Hours up to 6 AM 12/26/20 06:00 Intake Total 0 ml Output Total 100 ml Balance -100 ml Laboratory Data 24H LABS Laboratory Tests 2 12/26/20 11:20: Nucleated Red Blood Cells % (auto) 0.0, Anion Gap 7L, Glomerular Filtration Rate 48.3, Calcium Level 8.9, Magnesium Level 2.2, Total Bilirubin 1.3H, Aspartate Amino Transf (AST/SGOT) 30, Alanine Aminotransferase (ALT/SGPT) 25, Alkaline Phosphatase 104, Total Protein 7.8, Albumin 3.7, Albumin/Globulin Ratio 0.9 12/26/20 14:50: Coronavirus (COVID-19)(PCR) NEGATIVE CBC/BMP Laboratory Tests 12/26/20 11:20 Microbiology Microbiology 12/25/20 Blood Culture - Preliminary, Resulted No growth after 24 hours . All specim... 12/25/20 Blood Culture - Preliminary, Resulted No growth after 24 hours . All specim... VALENTINA BURCE MD Dec 26, 2020 21:25
[2020-12-26] MEDS ORDERED: LR 1,000 ML IV SCH (21:40)
[2020-12-26] MEDS ORDERED: fentaNYL 100 MCG/2 ML INJECTION (J3010) IV PRN (21:40)
[2020-12-26] MEDS ORDERED: ONDANSETRON 4MG/2ML VIAL IV PRN (21:40)
[2020-12-26] MEDS ORDERED: METOCLOPRAMIDE INJ 10MG/2ML VIAL (J2765 PER 1) IV PRN (21:40)
[2020-12-26] MEDS: PHENAZOPYRIDINE 100 MG TAB PO SCH (22:46)
[2020-12-26] MEDS: D5W/0.45% SODIUM CHLORIDE 1,000 ML IV SCH (22:46)
[2020-12-27] MEDS: PIPERACILLIN/TAZOBACTAM SOD 3.375 GM in D5W MINI-BAG PLUS 50 ML IV SCH ×4 (00:17→18:28)
[2020-12-27 04:56] VITALS: BP 156/71
--- NOTE | 2020-12-27 08:08 | REP ---
INDICATION: RIGHT STENT PLACEMENT. COMPARISON: None. TECHNIQUE: A single view. 1 minute 49 seconds of fluoroscopy time is reported. FINDINGS: A single last image hold fluoroscopically obtained spot radiograph of the abdomen documents right ureteral cannulation and contrast injection. IMPRESSION: Procedural imaging. <Electronically signed by Rocco Peña > 12/27/20 0833
--- NOTE | 2020-12-27 08:27 | IPNPDOC ---
Date Seen The patient was seen on 12/27/20. Progress Note I just spoke with pt and Dr. Grimes over the phone pt in need of a right nephrostomy tube large impacted right upj stone unsuccessful attempt to place stent yesterday explained the situation to pt now having flank pain whereas yesterday he wasn't I just spoke with Dr. Castañeda as well IR to place nephrostomy tube thank you [phone] VS, I&O, 24H, Fishbone Vital Signs/I&O Vital Signs Date Time Temp Pulse Resp B/P (MAP) Pulse Ox O2 Delivery O2 Flow Rate FiO2 12/27/20 04:56 99.6 80 20 156/71 (99) 95 Room Air I&O- Last 24 Hours up to 6 AM 12/27/20 06:00 Intake Total 2525 ml Output Total 525 ml Balance 2000 ml Laboratory Data 24H LABS Laboratory Tests 2 12/26/20 11:20: Nucleated Red Blood Cells % (auto) 0.0, Anion Gap 7L, Glomerular Filtration Rate 48.3, Calcium Level 8.9, Magnesium Level 2.2, Total Bilirubin 1.3H, Aspartate Amino Transf (AST/SGOT) 30, Alanine Aminotransferase (ALT/SGPT) 25, Alkaline Phosphatase 104, Total Protein 7.8, Albumin 3.7, Albumin/Globulin Ratio 0.9 12/26/20 14:50: Coronavirus (COVID-19)(PCR) NEGATIVE CBC/BMP Laboratory Tests 12/26/20 11:20 Microbiology Microbiology 12/25/20 Blood Culture - Preliminary, Resulted No growth after 24 hours . All specim... 12/25/20 Blood Culture - Preliminary, Resulted No growth after 24 hours . All specim... VALENTINA BRUCE MD Dec 27, 2020 08:27
[2020-12-27] MEDS ORDERED: diphenhydrAMINE 50MG/ML VIAL (J1200) As Ordered ONE (08:55)
[2020-12-27] MEDS ORDERED: ISOVUE-300 61% 50ML VIAL As Ordered ONE (08:56)
[2020-12-27] MEDS ORDERED: MIDAZOLAM INJ 2MG/2ML VIAL (J2250 PER 1MG) As Ordered ONE (08:56)
[2020-12-27] MEDS ORDERED: fentaNYL 100 MCG/2 ML INJECTION (J3010) As Ordered ONE (08:56)
[2020-12-27] MEDS ORDERED: LIDOCAINE 1% MDV 20ML VIAL As Ordered ONE (08:56)
[2020-12-27] MEDS: PHENAZOPYRIDINE 100 MG TAB PO SCH ×3 (09:00→20:39)
[2020-12-27 09:32] LABS: BASO # 0.1 10^3/uL (0.0-0.2); BASO % 0.4 % (0.0-1.0); EOS # 0.1 10^3/uL (0.0-0.5); HEMATOCRIT 38.1 % (42.0-52.0); HEMOGLOBIN 12.8 g/dl (13.5-17.5); LYMPH # 1.1 10^3/uL (1.5-5.0); LYMPH % 8.1 % (24.0-44.0); MEAN CORPUSCULAR HEMOGLOBIN 31.2 pg (27.0-33.0); MEAN CORPUSCULAR HGB CONC 33.6 g/dl (32.0-36.5); MEAN CORPUSCULAR VOLUME 92.9 fl (80.0-96.0); MONO # 0.9 10^3/uL (0.0-0.8); NEUTROPHILS # 11.1 10^3/uL (1.5-8.5); NEUTROPHILS % 83.1 % (36.0-66.0); PLATELET COUNT, AUTOMATED 188 10^3/uL (150-450); WHITE BLOOD COUNT 13.4 10^3/uL (4.0-10.0)
[2020-12-27] MEDS ORDERED: ceFAZolin 1GM VIAL (J0690 PER 500MG) As Ordered ONE (09:38)
[2020-12-27 10:04] LABS: ALBUMIN 3.3 GM/DL (3.2-5.2); BILIRUBIN,TOTAL 1.3 MG/DL (0.2-1.0); CALCIUM LEVEL 8.2 MG/DL (8.8-10.2); CREATININE FOR GFR 1.6 MG/DL (0.70-1.30); GLOMERULAR FILTRATION RATE 44.2 (>35)
--- NOTE | 2020-12-27 10:14 | IRMSE ---
[facility] IR Moderate Sedation Eval. Date and Time Date: Dec 27, 2020 Time: 10:14 ASA Classification ASA Classification: II-Mild systemic disease Mallampati Score: II NPO: Yes Obstructive Sleep Apnea: No Interval Plan: moderate sedation ANA WOOTEN MD Dec 27, 2020 10:14
--- NOTE | 2020-12-27 10:27 | IPNPDOC ---
Date Seen The patient was seen on 12/27/20. Progress Note SUBJECTIVE: Patient is a 85-year-old male with hydronephrosis and cholecystitis History of present illness: Patient is a 85-year-old male who presented to the [facility] last night with upper epigastric pain and lower abdominal quadrant pain who was transferred to [facility] for further management. Patient states that yesterday after dinner he developed acute epigastric pain as well as lower abdominal quadrants pain. He described the pain as gnawing, dull, and uncomfortable. He did state he induced vomiting 4-5 times which relieved the lower abdominal quadrant pain but the gnawing uncomfortable pain in the epigastric area continued. He tried Tums which provided no relief. He said the burping did provide a couple seconds of relief. Because of the continuing pain he and his decided to go to [facility] for further evaluation and management. There it was discovered that the patient has a 1.5 cm gallstone with gallbladder wall thickening as well as a 2 cm kidney stone in the right kidney with accompanying hydronephrosis. He also received 2 doses of morphine and 1 dose of Zofran at [facility] as well. Events last encounter: Dr. Whipple attempted to place a ureteral stent last night in the right kidney but was unable to do so due to in the impaction of the stone preventing placement of the stent. A nephrostomy tube will be attempted to be placed today with interventional radiology. Dr. Whipple wanted to hold off on the HIDA scan so patient could receive pain meds. Patient reported he has been having bloody urine and dysuria since procedure. He started to develop severe right-sided pain around 5 AM this morning has been getting increasingly worse since. Morphine 2 mg has been given for pain control. I have been in contact with his son Jhoan and his updating them on events as they have been and will continue to do so. Review of systems: Constitutional: Denies fever, chills Cardiac: Denies chest pain Respiratory: Denies shortness of breath, coughing Gastrointestinal: Denies nausea, diarrhea; endorses flank pain on the right side Genitourinary: Endorses hematuria and dysuria Neurologic: Denies headache, dizziness OBJECTIVE PHYSICAL EXAMINATION: Limited due to patient in pain status post attempt to place ureteral stent VITAL SIGNS: Please see below. GENERAL: 85-year-old male, lying in bed, in acute distress HEENT: Head normocephalic atraumatic CARDIOVASCULAR: Regular rate and rhythm. RESPIRATORY: Clear lung sounds auscultated on flank. Unable to auscultate backside of patient successfully due to pain limitations ABDOMINAL: Normoactive bowel sounds EXTREMITIES: Appropriate range of motion in all four extremities PSYCHOLOGICAL: Alert and oriented x4 LABORATORY DATA, IMAGING STUDIES, MICROBIOLOGY: Please see below. DVT prophylaxis ordered?: Teds and sequentials ASSESSMENT AND PLAN: This is a 85-year-old male with nephrolithiasis, hydronephrosis, cholecystitis status post failed ureteral stent placement attempt. Taken down to interventional radiology for nephrostomy stent placement in his right kidney in an attempt to drain retained urine from impacted stone at the ureteropelvic junction. HIDA scan has been held so patient could receive pain medication prior to procedure. His family, son and , have been updated on situation I will continue to remain in contact with them. Will reevaluate after patient is out of procedure and lucid. PROBLEMS: #Hydronephrosis and kidney stone -Flomax started 0.4 mg p.o. daily and IV fluid hydration -Will avoid NSAIDS given slight Cr increase -Will remain NPO until evaluated by Urology and status post nephrostomy stent -Ureteral stent placement was unsuccessful due to presence of stone in the UPJ #Cholecystitis -The HIDA scan will be done at a later time in order for patient to receive pain medication prior to undergoing the nephrostomy stent placement. #Cr slightly elevated - likely 2/2 JOSIE - likely 2/2 post-obstructive etiology - Cr remains elevated - UA will be repeated from nephrostomy - c/w IV fluids #DVT prophylaxis - Will c/w TEDs/Sequentials DISPOSITION: Awaiting clinical improvement VS, I&O, 24H, [facility] Vital Signs/I&O Vital Signs Date Time Temp Pulse Resp B/P (MAP) Pulse Ox O2 Delivery O2 Flow Rate FiO2 12/27/20 09:06 18 Room Air 12/27/20 04:56 99.6 80 156/71 (99) 95 I&O- Last 24 Hours up to 6 AM 12/27/20 06:00 Intake Total 2525 ml Output Total 525 ml Balance 2000 ml Laboratory Data 24H LABS Laboratory Tests 2 12/26/20 11:20: Nucleated Red Blood Cells % (auto) 0.0, Anion Gap 7L, Glomerular Filtration Rate 48.3, Calcium Level 8.9, Magnesium Level 2.2, Total Bilirubin 1.3H, Aspartate Am reuben Transf (AST/SGOT) 30, Alanine Aminotransferase (ALT/SGPT) 25, Alkaline Phosphatase 104, Total Protein 7.8, Albumin 3.7, Albumin/Globulin Ratio 0.9 12/26/20 14:50: Coronavirus (COVID-19)(PCR) NEGATIVE 12/27/20 09:06: Nucleated Red Blood Cells % (auto) 0.0, Anion Gap 8, Glomerular Filtration Rate 44.2, Calcium Level 8.2L, Magnesium Level 2.0, Total Bilirubin 1.3H, Aspartate Amino Transf (AST/SGOT) 41H, Alanine Aminotransferase (ALT/SGPT) 28, Alkaline Ph osphatase 88, Total Protein 7.0, Albumin 3.3, Albumin/Globulin Ratio 0.9, Immature Granulocyte % (Auto) 0.4, Neutrophils (%) (Auto) 83.1H, Lymphocytes (%) (Auto) 8.1L, Monocytes (%) (Auto) 7.0, Eosinophils (%) (Auto) 1.0, Basophils (%) (Auto) 0.4, Neutrophils # (Auto) 11.1H, Lymphocytes # (Auto) 1.1L, Monocytes # (Auto) 0.9H, Eosinophils # (Auto) 0.1, Basophils # (Auto) 0.1 CBC/BMP Laboratory Tests 12/26/20 11:20 12/27/20 09:06 Microbiology Microbiology 12/25/20 Blood Culture - Preliminary, Resulted No growth after 24 hours . All specim... 12/25/20 Blood Culture - Preliminary, Resulted No growth after 24 hours . All specim... GME ATTESTATION GME ATTESTATION My faculty preceptor for this patient encounter was physically present during the encounter and was fully available. All aspects of the patient interview, examination, medical decision making process, and medical care plan development were reviewed and approved by the faculty preceptor. The faculty preceptor is aware and concurs with the plan as stated in the body of this note and will attest to such by his/her cosignature. ATTENDING NOTE I, Sheryl Spencer, have independently examined this patient and performed my own physical exam, as well as reviewed the documentation and edited where necessary. I have discussed in detail with the resident / student the findings and plan of treatment as documented by the resident / student and edited their note. I agree with their findings and treatment plan and have edited their documentation. I will continue to follow the patient during this hospital stay. Adam Grimes DO Dec 27, 2020 10:27 SHERYL SPENCER MD Dec 27, 2020 18:10
[2020-12-27 11:01] LABS: INR 1.23; PROTHROMBIN TIME 15.9 SECONDS (12.7-14.5)
[2020-12-27 11:30] VITALS: BP 144/70
[2020-12-27 11:45] VITALS: BP 148/68
[2020-12-27 14:00] VITALS: BP 145/68
[2020-12-27] MEDS: D5W/0.45% SODIUM CHLORIDE 1,000 ML IV SCH (16:44)
[2020-12-27 17:29] LABS: BILIRUBIN, URINE MANUAL NEGATIVE (NEGATIVE); GLUCOSE, URINE (UA) MANUAL 1+(100 MG/DL) mg/dL (NEGATIVE); KETONE, URINE MANUAL NEGATIVE (NEGATIVE); UROBILINOGEN, URINE MANUAL NORMAL (NORMAL)
[2020-12-27 17:31] LABS: BACTERIA, URINE NONE SEEN; HYALINE CAST, URINE NONE SEEN /lpf (0-1); RBC, URINE TNTC /hpf (0-3)
[2020-12-27 20:00] VITALS: BP_SYST 110
[2020-12-27 21:10] VITALS: BP_DIAS 55
[2020-12-28] MEDS: PIPERACILLIN/TAZOBACTAM SOD 3.375 GM in D5W MINI-BAG PLUS 50 ML IV SCH ×4 (00:18→18:11)
[2020-12-28] MEDS: D5W/0.45% SODIUM CHLORIDE 1,000 ML IV SCH (00:20)
[2020-12-28 06:08] VITALS: BP 114/54
[2020-12-28 06:58] LABS: BASO # 0.1 10^3/uL (0.0-0.2); BASO % 0.5 % (0.0-1.0); EOS # 0.5 10^3/uL (0.0-0.5); EOS % 4.3 % (0.0-3.0); HEMATOCRIT 31.7 % (42.0-52.0); LYMPH # 2.1 10^3/uL (1.5-5.0); LYMPH % 18.2 % (24.0-44.0); MEAN CORPUSCULAR HEMOGLOBIN 31.4 pg (27.0-33.0); MEAN CORPUSCULAR HGB CONC 33.8 g/dl (32.0-36.5); MONO # 1.3 10^3/uL (0.0-0.8); MONO % 11.1 % (2.0-8.0); NEUTROPHILS # 7.4 10^3/uL (1.5-8.5); NEUTROPHILS % 65.6 % (36.0-66.0); PLATELET COUNT, AUTOMATED 160 10^3/uL (150-450); RED BLOOD COUNT 3.41 10^6/uL (4.30-6.10); WHITE BLOOD COUNT 11.3 10^3/uL (4.0-10.0)
[2020-12-28 07:01] LABS: HEMOGLOBIN 10.7 g/dl (13.5-17.5)
[2020-12-28 07:26] LABS: ALBUMIN 2.4 GM/DL (3.2-5.2); BILIRUBIN,TOTAL 0.8 MG/DL (0.2-1.0); CALCIUM LEVEL 7.9 MG/DL (8.8-10.2); CREATININE FOR GFR 1.54 MG/DL (0.70-1.30); GLOMERULAR FILTRATION RATE 46.2 (>35); MAGNESIUM LEVEL 1.8 MG/DL (1.8-2.4); POTASSIUM SERUM 3.6 MEQ/L (3.5-5.1); TOTAL PROTEIN 5.8 GM/DL (6.4-8.2)
[2020-12-28] MEDS: NS 1,000 ML IV SCH ×2 (07:57→18:11)
[2020-12-28] MEDS: PHENAZOPYRIDINE 100 MG TAB PO SCH ×3 (07:57→20:36)
--- NOTE | 2020-12-28 09:09 | IPN ---
PROGRESS NOTE DATE: 12/27/2020 SUBJECTIVE: The patient had been admitted by the hospitalist service with an episode of upper abdominal pain. He was found to have a gallstone in the neck of the gallbladder with some gallbladder wall thickening, as well as a stone obstructing the right kidney with significant hydronephrosis. He was started on antibiotics and I was consulted for general surgery and the urologist was also consulted. When I saw him on the , he had no abdominal pain or tenderness and was noted to have normal liver function tests. OBJECTIVE: VITAL SIGNS: He has been afebrile over the past 24 hours. His pulse has been in the 60s to low 80s. Blood pressure is good. INTAKE AND OUTPUT: Shows that on the he had had 2500 in with 175 mL of urine output recorded. GENERAL: The patient has just returned very recently from having a percutaneous nephrostomy on the right. He is quite sedated. He apparently had not been complaining of any abdominal pain earlier in the day. LABORATORY DATA: This morning showed a white count of 13, hemoglobin 13, hematocrit 38, and a differential count showing 83% neutrophils and 8% lymphocytes. Chemistry profile showed a BUN of 20, creatinine 1.6, and his total bilirubin is minimally elevated at 1.3, but stable at that level. The other liver function tests are not significantly abnormal. ASSESSMENT: 1. Acute cholecystitis currently asymptomatic. 2. Obstructing right renal stone, which is probably of some longstanding. RECOMMENDATIONS: At this point, I did not try to engage the patient in longer conversation regarding the acute cholecystitis. He had been scheduled for a HIDA scan for today, but that was superseded by placement of his percutaneous nephrostomy. I suspect that the HIDA scan will not be done over the weekend and would need to be rescheduled to the coming Wednesday. I did review the images of his CT scan from [facility] and the ultrasound here and I believe, the gallbladder wall thickening is noted on both studies and they are quite typical for acute cholecystitis. At this point, I do not know that the HIDA scan is going to make a difference in his care. If the HIDA scan is done and shows that his cystic duct is obstructed, but he remains asymptomatic, I do not suspect he will wish to proceed with surgery. If the HIDA scan shows that his gallbladder fills, then I also suspect that he will not wish to proceed with surgery. We will see how he does over the weekend. I would continue his antibiotics for now. Management of the nephrostomy is at the direction of the urologist.
--- NOTE | 2020-12-28 13:28 | IPNPDOC ---
Date Seen The patient was seen on 12/28/20. Progress Note SUBJECTIVE: Patient is a 85-year-old male with hydronephrosis and cholecystitis History of present illness: Patient is a 85-year-old male who presented to the [facility] last night with upper epigastric pain and lower abdominal quadrant pain who was transferred to [facility] for further management. Patient states that yesterday after dinner he developed acute epigastric pain as well as lower abdominal quadrants pain. He described the pain as gnawing, dull, and uncomfortable. He did state he induced vomiting 4-5 times which relieved the lower abdominal quadrant pain but the gnawing uncomfortable pain in the epigastric area continued. He tried Tums which provided no relief. He said the burping did provide a couple seconds of relief. Because of the continuing pain he and his decided to go to [facility] for further evaluation and management. There it was discovered that the patient has a 1.5 cm gallstone with gallbladder wall thickening as well as a 2 cm kidney stone in the right kidney with accompanying hydronephrosis. He also received 2 doses of morphine and 1 dose of Zofran at [facility] as well. Events last encounter: Patient did well overnight. He is status post nephrostomy tube placement which went well. At time of conversation and exam patient was complaining of no pain at this time. Explained to patient that we are looking at his labs for improved kidney function and then discharge can be discussed. In regards to his acute cholecystitis Dr. Vanegas was consulted: At this point, [he does not] know that the HIDA scan is going to make a difference in his care. If the HIDA scan is done and shows that his cystic duct is obstructed, but he remains asymptomatic, I do not suspect he will wish to proceed with surgery. If the HIDA scan shows that his gallbladder fills, then I also suspect that he will not wish to proceed with surgery. We will see how he does over the weekend. I would continue his antibiotics for now. Review of systems: Constitutional: Denies fever, chills Cardiac: Denies chest pain Respiratory: Denies shortness of breath, coughing Gastrointestinal: Denies nausea, diarrhea; endorses vast improvement in fact flank pain and now and only slight discomfort Genitourinary: Endorses hematuria, denies dysuria Neurologic: Denies headache, dizziness OBJECTIVE: PHYSICAL EXAMINATION: VITAL SIGNS: Please see below. GENERAL: 85-year-old male, lying in bed, in no acute distress HEENT: Head normocephalic atraumatic, eyes EOMI and PERRLA CARDIOVASCULAR: Regular rate and rhythm. RESPIRATORY: Clear to auscultation bilaterally, no wheezes, no rhonchi ABDOMINAL: Normoactive bowel sounds, nontender to palpation EXTREMITIES: Appropriate range of motion in all four extremities BACK: Nephrostomy tube in place and patient's right back, draining bloody liquid from right kidney, urine collection bottle at bedside also had bloody urine in it PSYCHOLOGICAL: Alert and oriented x4 LABORATORY DATA, IMAGING STUDIES, MICROBIOLOGY: Please see below. DVT prophylaxis ordered?: Teds and sequentials ASSESSMENT AND PLAN: This is a 85-year-old male with nephrolithiasis, hydronephrosis, cholecystitis status post failed ureteral stent placement attempt, and successful nephrostomy tube placement in the right kidney. Seizure went well and tube is draining and patient reports adequate pain control. White count is trending downward towards normal kidney function labs are returning to baseline. We will evaluate we will evaluate again tomorrow and consider discharge then pending labs PROBLEMS: #Hydronephrosis and kidney stone -Flomax started 0.4 mg p.o. daily and IV fluid hydration (changed to normal saline) -Will avoid NSAIDS given slight Cr increase -Ureteral stent placement was unsuccessful due to presence of stone in the UPJ -Nephrostomy tube was successfully placed in kidney has been draining -Has been moved to a normal diet -Continue pain control regimens as directed #Acute Cholecystitis? - Currently does not have any abdominal pain / Nausea or Vomiting - Will get HIDA scan on Wednesday - Will discuss with patient about surgery if warranted; however it is likely he will refuse if he is asymptomatic - General surgery on consult #Cr slightly elevated - likely 2/2 JOSIE - likely 2/2 post-obstructive etiology -Cr remains elevated but less than yesterday (1.6 yesterday, 1.5 today) -UC will be repeated on fluid drained from kidney into nephrostomy bag - c/w IV fluids #DVT prophylaxis - Will c/w TEDs/Sequentials DISPOSITION: Has clinically improved, monitor for possible discharge tomorrow VS, I&O, 24H, Fishbone Vital Signs/I&O Vital Signs Date Time Temp Pulse Resp B/P (MAP) Pulse Ox O2 Delivery O2 Flow Rate FiO2 12/28/20 06:08 99.3 68 20 114/54 (74) 98 Room Air 12/27/20 10:50 2.0 I&O- Last 24 Hours up to 6 AM 12/28/20 06:00 Intake Total 2232 ml Output Total 750 ml Balance 1482 ml Laboratory Data 24H LABS Laboratory Tests 2 12/27/20 17:13: Urine Color (RHONDA) REDH, Urine Appearance (RHONDA) TURBIDH, Urine pH (RHONDA) 8.0, Urine Specific [place] (RHONDA) 1.010, Bedside Urine Glucose (UA) 1+(100 MG/DL)H, Bedside Urine Ketones (LAB) NEGATIVE, Bedside Urine Blood POSITIVEH, Bedside Urine Nitrite (LAB) OBSCUREDH, Bedside Urine Bilirubin (LAB) NEGATIVE, Bedside Urine Urobilinogen (LAB) NORMAL, Bedside Urine Leukocyte Esterase (L TRACEH, Urine Sediment Examination PERFORMED, Urine RBC TNTCH, Urine WBC NONE SEEN, U rine Squamous Epithelial Cells , Urine Bacteria NONE SEEN, Urine Hyaline Casts NONE SEEN 12/28/20 06:10: Immature Granulocyte % (Auto) 0.3, Neutrophils (%) (Auto) 65.6, Lymphocytes (%) (Auto) 18.2L, Monocytes (%) (Auto) 11.1H, Eosinophils (%) (Auto) 4.3H, Basophils (%) (Auto) 0.5, Neutrophils # (Auto) 7.4, Lymphocytes # (Auto) 2.1, Monocytes # (Auto) 1.3H, Eosinophils # (Auto) 0.5, Basophils # (Auto) 0.1, Nucleated Red Blood Cells % (auto) 0.0, Anion Gap 4L, Glomerular Filtration Rate 46.2, Calcium Level 7.9L, Magnesium Level 1.8, Total Bilirubin 0.8, Aspartate Amino Transf (AST/SGOT) 22, Alanine Aminotransferase (ALT/SGPT) 19, Alkaline Phosphatase 67, Total Protein 5.8L, Albumin 2.4#L, Albumin/Globulin Ratio 0.7 CBC/BMP Laboratory Tests 12/28/20 06:10 Microbiology Microbiology 12/27/20 Urine Culture, Received Pending 12/25/20 Blood Culture - Preliminary, Resulted No Growth after 48 hours. All Specime... 12/25/20 Blood Culture - Preliminary, Resulted No Growth after 48 hours. All Specime... GME ATTESTATION GME ATTESTATION My faculty preceptor for this patient encounter was physically present during the encounter and was fully available. All aspects of the patient interview, examination, medical decision making process, and medical care plan development were reviewed and approved by the faculty preceptor. The faculty preceptor is aware and concurs with the plan as stated in the body of this note and will attest to such by his/her cosignature. ATTENDING NOTE I, Sheryl Spencer, have independently examined this patient and performed my own physical exam, as well as reviewed the documentation and edited where necessary. I have discussed in detail with the resident / student the findings and plan of treatment as documented by the resident / student and edited their note. I agree with their findings and treatment plan and have edited their documentation. I will continue to follow the patient during this hospital stay. Adam Grimes DO Dec 28, 2020 13:28 SHERYL SPENCER MD Dec 28, 2020 16:09
[2020-12-28] MEDS ORDERED: MOM 30ML SUSPENSION UDC PO PRN (13:50)
[2020-12-28] MEDS ORDERED: SENOKOT S TAB PO PRN (13:50)
[2020-12-28 14:00] VITALS: BP 152/78
[2020-12-28 22:00] VITALS: BP 142/75
[2020-12-29] MEDS: PIPERACILLIN/TAZOBACTAM SOD 3.375 GM in D5W MINI-BAG PLUS 50 ML IV SCH ×2 (00:30→05:41)
[2020-12-29] MEDS: NS 1,000 ML IV SCH (00:30)
[2020-12-29 05:46] LABS: BASO # 0.1 10^3/uL (0.0-0.2); BASO % 0.7 % (0.0-1.0); EOS # 0.6 10^3/uL (0.0-0.5); EOS % 6.1 % (0.0-3.0); HEMATOCRIT 31.2 % (42.0-52.0); HEMOGLOBIN 10.5 g/dl (13.5-17.5); LYMPH # 1.7 10^3/uL (1.5-5.0); LYMPH % 16.5 % (24.0-44.0); MEAN CORPUSCULAR HEMOGLOBIN 31.4 pg (27.0-33.0); MEAN CORPUSCULAR HGB CONC 33.7 g/dl (32.0-36.5); MEAN CORPUSCULAR VOLUME 93.4 fl (80.0-96.0); MONO % 9.2 % (2.0-8.0); NEUTROPHILS # 7.1 10^3/uL (1.5-8.5); PLATELET COUNT, AUTOMATED 157 10^3/uL (150-450); RED BLOOD COUNT 3.34 10^6/uL (4.30-6.10); WHITE BLOOD COUNT 10.5 10^3/uL (4.0-10.0)
[2020-12-29 06:00] VITALS: BP 140/69
[2020-12-29 06:21] LABS: ALBUMIN 2.4 GM/DL (3.2-5.2); BILIRUBIN,TOTAL 0.6 MG/DL (0.2-1.0); CALCIUM LEVEL 7.9 MG/DL (8.8-10.2); CREATININE FOR GFR 1.25 MG/DL (0.70-1.30); GLOMERULAR FILTRATION RATE 58.7 (>35); MAGNESIUM LEVEL 1.8 MG/DL (1.8-2.4); POTASSIUM SERUM 3.9 MEQ/L (3.5-5.1); TOTAL PROTEIN 5.7 GM/DL (6.4-8.2)
[2020-12-29] MEDS: PHENAZOPYRIDINE 100 MG TAB PO SCH (08:47)
[2020-12-29] MEDS ORDERED: metroNIDAZOLE (FLAGYL) 500MG TABLET PO SCH (09:00)
[2020-12-29] MEDS ORDERED: FLAG500T PO ×2 (12:03→12:37)
[2020-12-29] MEDS ORDERED: CEFD300CAP PO ×2 (12:03→12:37)
[2020-12-29] MEDS ORDERED: PHEN1TAB73 PO ×2 (12:03→12:37)
--- NOTE | 2020-12-29 12:08 | IPNPDOC ---
Subjective Review oF Systems Chief Complaint The patient is a 85-year-old male admitted with a reason for visit of Hydronephrosis & Colosystolitis. Events since Last Encounter Pt stable with Rt PCN tube draining blood tinged urine Gastrointestinal: Denies: Nausea, Vomiting, Abdominal Pain, Diarrhea, Constipa tion, Hematochezia, Other Symptoms Genitourinary: Denies: Dysuria, Frequency, Incontinence, Hematuria, Retention, Other Symptoms Objective Physical Examination ABDOMEN EXAM: Soft, Other (no CVA tenderness); No: Tenderness Vital Signs/I&O Vital Signs Date Time Temp Pulse Resp B/P (MAP) Pulse Ox O2 Delivery O2 Flow Rate FiO2 12/29/20 06:00 97.9 67 18 140/69 (92) 97 Room Air 12/27/20 10:50 2.0 I&O- Last 24 Hours up to 6 AM 12/29/20 06:00 Intake Total 3445 ml Output Total 1200 ml Balance 2245 ml Laboratory Data Labs 24H Laboratory Tests 2 12/29/20 05:24: Immature Granulocyte % (Auto) 0.5, Neutrophils (%) (Auto) 67.0H, Lymphocytes (%) (Auto) 16.5L, Monocytes (%) (Auto) 9.2H, Eosinophils (%) (Auto) 6.1H, Basophils (%) (Auto) 0.7, Neutrophils # (Auto) 7.1, Lymphocytes # (Auto) 1.7, Monocytes # (Auto) 1.0H, Eosinophils # (Auto) 0.6H, Basophils # (Auto) 0.1, Nucleated Red Blood Cells % (auto) 0.0, Anion Gap 3L, Glomerular Filtration Rate 58.7, Calcium Level 7.9L, Magnesium Level 1.8, Total Bilirubin 0.6, Aspartate Amino Transf (AST/SGOT) 68H, Alanine Aminotransferase (ALT/SGPT) 64, Alkaline Phosphatase 148H, Total Protein 5.7L, Albumin 2.4L, Albumin/Globulin Ratio 0.7 CBC/BMP Laboratory Tests 12/29/20 05:24 Microbiology Microbiology 12/27/20 Urine Culture - Final, Complete 12/25/20 Blood Culture - Preliminary, Resulted No Growth after 72 hours. All specime... 12/25/20 Blood Culture - Preliminary, Resulted No Growth after 72 hours. All specime... Assessment/Plan Date Seen The patient was seen on 12/29/20. Patient Summary Patient is stable. RT. PCN tube draining well. He is without urinary complaints. Plan/VTE VTE Prophylaxis Ordered?: Yes (Teds and sequentials) Plan Patient is clear for discharge with percutaneous nephrostomy tube. He is to follow up with Dr. Whipple for next steps regarding treating his UPJ obstructing stone. TATI KNOWLES MD Dec 29, 2020 12:08
--- NOTE | 2020-12-29 12:26 | DS.PDOC ---
Discharge Summary General Date of Admission Dec 25, 2020 at 14:33 Date of Discharge 12/29/2020 Discharge Summary PROCEDURES PERFORMED DURING STAY: 12/26/2020 Dr. Whipple; Cysto with attempt at right stent placement, retrograde, fluoroscopy 12/27/2020 Dr. Castañeda; R nephrostomy tube placement ADMITTING DIAGNOSES / DISCHARGE DIAGNOSES: Acute severe right-sided hydronephrosis secondary to obstructive nephrolithiasis Cholecystitis; less likely 2/2 acute s/p JOSIE - likely 2/2 post-obstructive etiology Normocytic anemia DVT prophylaxis COMPLICATIONS/CHIEF COMPLAINT: Abdominal pain HISTORY OF PRESENT ILLNESS: Patient is an 85-year-old male with no significant past medical history of present as a transfer from [facility] after he was noted to have some abdominal pain. Imaging completed at [facility] suggested acute cholecystitis and acute hydronephrosis with obstructive stone. Urology and general surgery were called on consultation. Patient was admitted to the hospitalist service for further evaluation and treatment. Patient was seen and examined at the bedside this morning. He was seen sitting up in chair. Denies any nausea, vomiting, had eaten a full breakfast tray has not experienced any chest pain, shortness of breath or palpitations. He reports he is not experiencing any abdominal pain. He did report a significant bowel movement this morning. Denies any urinary discomfort. HOSPITAL COURSE: Acute severe right-sided hydronephrosis secondary to obstructive nephrolithiasis - Clinically patient has reported resolution of his right-sided flank pain - He remains hemodynamically stable and afebrile - Leukocytosis has been downtrending - Kidney function is normalizing - s/p Cysto with attempt at right stent placement, retrograde, fluoroscopy with Dr. Whipple on 12/26/2020 - s/p R nephrostomy tube placement by Dr. Castañeda on 12/27/2020 - s/p IV fluid hydration; Encouraged increased oral hydration - Urology on consultation; discussed care plan with Dr. Cuevas - Will have outpatient follow-up with urology within the next 7 days Cholecystitis; less likely 2/2 acute - Clinically patient does not have any nausea, vomiting or abdominal discomfort - He remains afebrile and hemodynamically stable - Physical does not reveal any abdominal tenderness - Leukocytosis has been downtrending - No significant LFT abnormalities - Blood cultures 12/25: No growth in 72 hours - Will start Cefdinir / Flagyl; Will DC Zosyn - Patient reports that he would only want surgery if it is an absolute necessity, he would prefer conservative treatment at this time; understands risks / benefits - Addressed multiple questions and concerns in the room - General surgery on consultation; discussed care plan with Dr. Pratt - Will have outpatient follow up of labs within 48 hours - Will have outpatient follow-up with general surgery within the next 7 days s/p JOSIE - likely 2/2 post-obstructive etiology - Renal function improving - s/p IV fluids Normocytic anemia - Hg remains stable DVT prophylaxis - c/w TEDs/Sequentials DISCHARGE MEDICATIONS: Please see below. ALLERGIES: Please see below. PHYSICAL EXAMINATION ON DISCHARGE: Vitals (See below) General: Lying in bed, appears comfortable, AAOx3 HEENT: NC, AT CVS: RRR, +S1S2 Lungs: Fair air entry b/l, no wheezing, rales or rhonchi Abdomen: His entire abdomen remains soft without any appreciated distention or tenderness on exam Extremities: - Edema, - Calf tenderness LABORATORY DATA: Please see below. IMAGING: Liver US 12/25: 1. Cholelithiasis. 2. Distended thick-walled gallbladder containing sludge in addition to a cyst gallstone. No tenderness to scanning or pericholecystic fluid seen. 3. Severe right-sided hydronephrosis. Retrograde pyelogram 12/27: Procedural imaging. ACTIVITY: [As tolerated]. DISCHARGE PLAN: Follow-up with primary care provider, urology and general surgery within the next 7 days Remain compliant with treatment plan and medications Return to the ER if you experience any problems DISPOSITION: Home with services DISCHARGE CONDITION: [Stable]. TIME SPENT ON DISCHARGE: 35 minutes. Vital Signs/I&Os Vital Signs Date Time Temp Pulse Resp B/P (MAP) Pulse Ox O2 Delivery O2 Flow Rate FiO2 12/29/20 06:00 97.9 67 18 140/69 (92) 97 Room Air 12/27/20 10:50 2.0 I&O- Last 24 Hours up to 6 AM 12/29/20 06:00 Intake Total 3445 ml Output Total 1200 ml Balance 2245 ml Laboratory Data Labs 24H Laboratory Tests 2 12/29/20 05:24: Immature Granulocyte % (Auto) 0.5, Neutrophils (%) (Auto) 67.0H, Lymphocytes (%) (Auto) 16.5L, Monocytes (%) (Auto) 9.2H, Eosinophils (%) (Auto) 6.1H, Basophils (%) (Auto) 0.7, Neutrophils # (Auto) 7.1, Lymphocytes # (Auto) 1.7, Monocytes # (Auto) 1.0H, Eosinophils # (Auto) 0.6H, Basophils # (Auto) 0.1, Nucleated Red Blood Cells % (auto) 0.0, Anion Gap 3L, Glomerular Filtration Rate 58.7, Calcium Level 7.9L, Magnesium Level 1.8, Total Bilirubin 0.6, Aspartate Amino Transf (AST/SGOT) 68H, Alanine Aminotransferase (ALT/SGPT) 64, Alkaline Phosphatase 148H, Total Protein 5.7L, Albumin 2.4L, Albumin/Globulin Ratio 0.7 CBC/BMP Laboratory Tests 12/29/20 05:24 Microbiology Microbiology 12/27/20 Urine Culture - Final, Complete 12/25/20 Blood Culture - Preliminary, Resulted No Growth after 72 hours. All specime... 12/25/20 Blood Culture - Preliminary, Resulted No Growth after 72 hours. All specime... Discharge Medications Scheduled Cefdinir (Cefdinir) 300 Mg Capsule, 300 MG PO BID . Metronidazole (Flagyl) 500 Mg Tablet, 500 MG PO TID . Multivit-Min/FA/Lycopen/Lutein (Centrum Silver Men Tablet) 1 Each Tablet, 1 TAB PO DAILY, (Reported) Phenazopyridine HCl (Phenazopyridine HCl) 100 Mg Tablet, 100 MG PO TID . Allergies Coded Allergies: No Known Allergies (Verified Allergy, Unknown, 12/25/20) JAQUAN SPENCER MD Dec 29, 2020 12:26
[2020-12-29] MEDS ORDERED: CEFDINIR 300 MG CAP (OMNICEF) PO SCH (21:00)
--- NOTE | 2020-12-30 08:37 | IRPON ---
IR Postoperative Note Date Of Procedure: Dec 27, 2020 Time Of Procedure: 16:00 IR Postoperative Note IR Percutaneous nephrostomy catheter placement using fluoroscopic and ultrasound guidance. IR Nephrostogram and Ureterogram. IR Ultrasound of the right kidney. IR Moderate sedation. Clinical Information:Right-sided hydronephrosis. Ureteropelvic junction stone. Not amenable to ureteral stenting by urology. Physician: Dr. Castañeda. Procedure: The patient was advised of the benefits, risks, and alternatives of the procedure and informed consent was obtained. A time out was performed with verification of the patient's name, MRN, site of procedure, and type of procedure to be performed. The patient was positioned in the prone position on the angiographic table. The site was prepped and draped in the usual sterile fashion. Moderate sedation was performed by the physician including the presence of an independent trained RN, who assisted in monitoring the patient's level of consciousness and physiological status. Following the administration of fentanyl and Versed, the physician spent 45 minutes of continuous [id number] time with the patient. A welder manufacture radiograph reveals radiopaque density in the region of the right ureteropelvic junction. The anticipated puncture site on the flank was anesthetized with lidocaine. Using ultrasound guidance, a lower pole calyx was accessed with a 21 Gauge Chiba needle. A nephrostogram and ureterogram were performed demonstrating severe hydronephrosis and complete UPJ obstruction. A [place] wire was then advanced into the collecting system, under fluoroscopy guidance. The needle was then exchanged for a nonvascular introducer set. An Amplatz wire was then advanced into the ureter, under fluoroscopy guidance. This sheath was removed over the wire. An 8 [place] nephrostomy catheter was then advanced, over the wire and under fluoroscopy guidance into the renal collecting system. The pigtail was formed and locked in position. A final nephrostogram and ureterogram were performed confirming positioning of the pigtail within the renal pelvis with hydronephrosis. The ureter is not patent to the urinary bladder. The catheter was sutured in position with 2-0 Prolene and a sterile dressing applied. The catheter was placed to gravity drainage. The patient tolerated the procedure well and was returned to the PRU in stable condition. EBL: < 5 mL. Complications:None. Conclusion: 1. Nephrostogram and Ureterogram demonstratemassive right-sided hydronephrosis and complete ureteropelvic junction obstruction. The ureter is not patent to the bladder. 2. Successful right sided nephrostomy catheter placement. Patient to follow-up with urology for stone removal. Patient to follow-up in IR after appropriate decompression for attempt at antegrade stenting and or nephrostomy exchange/removal if stone is successfully treated. 3. A 2-week IR follow-up appointment will be given to the patient. Thank you for this referral. CC ANA Blackman MD Dec 30, 2020 08:37
== END 2020-12-29 14:50 | disposition home health service (06) | DRG 694 ==
LOC: M MS5PR 14:33
PROVIDERS: ADMIT Family Medicine; ATTEND Internal Medicine
PROC: 0TJB8ZZ Inspection of Bladder, Via Natural or Artificial Opening Endoscopic (ICD-10-PCS; principal; 2020-12-26 17:30)
PROC: 0T9030Z Drainage of Right Kidney with Drainage Device, Percutaneous Approach (ICD-10-PCS; 2020-12-27)
PROC: BW11ZZZ Fluoroscopy of Abdomen and Pelvis (ICD-10-PCS; 2020-12-27)
DX: N13.2 Hydronephrosis with renal and ureteral calculous obstruction (principal); D64.9 Anemia, unspecified; Z79.82 Long term (current) use of aspirin; Z20.822 Contact with and (suspected) exposure to COVID-19; Z53.09 Procedure and treatment not carried out because of other contraindication

== ENCOUNTER → 2020-12-31 | Outpatient (CLI) | payer MEDICARE ==
[~2020-12-31] MED LIST: ASPI81TA26 PO; CEFD300CAP PO; CENT1TAB12 PO; FLAG500T PO; PHEN1TAB73 PO
[2020-12-31 11:27] LABS: HEMOGLOBIN 11.7 g/dl (13.5-17.5); MEAN CORPUSCULAR HEMOGLOBIN 31.2 pg (27.0-33.0); MEAN CORPUSCULAR HGB CONC 33.4 g/dl (32.0-36.5); MEAN CORPUSCULAR VOLUME 93.3 fl (80.0-96.0); PLATELET COUNT, AUTOMATED 220 10^3/uL (150-450); RED BLOOD COUNT 3.75 10^6/uL (4.30-6.10); WHITE BLOOD COUNT 10.8 10^3/uL (4.0-10.0)
[2020-12-31 12:00] LABS: ALBUMIN 3.2 GM/DL (3.2-5.2); ALT/SGPT 45 U/L (12-78); BILIRUBIN,TOTAL 0.4 MG/DL (0.2-1.0); BLOOD UREA NITROGEN 17 MG/DL (7-18); CALCIUM LEVEL 9.1 MG/DL (8.8-10.2); CARBON DIOXIDE LEVEL 30 MEQ/L (21-32); CHLORIDE LEVEL 105 MEQ/L (98-107); CREATININE FOR GFR 1.22 MG/DL (0.70-1.30); GLOMERULAR FILTRATION RATE > 60.0 (>35); GLUCOSE, FASTING 93 MG/DL (70-100); MAGNESIUM LEVEL 1.9 MG/DL (1.8-2.4); POTASSIUM SERUM 3.9 MEQ/L (3.5-5.1); SODIUM LEVEL 138 MEQ/L (136-145)
== END ==
LOC: M LAB 10:45
PROVIDERS: ATTEND Internal Medicine
DX: N20.0 Calculus of kidney (principal); Z93.6 Other artificial openings of urinary tract status; Z79.899 Other long term (current) drug therapy
CPT/HCPCS: 80053; 83735; 85027; G0463